=== PATIENT | female | born 1975 | race Hispanic/Latino ===

== ENCOUNTER 2017-01-19 10:26 | Emergency (ER) | payer SELFPAY ==
[~2017-01-19] VITALS: Ht 157.5 cm; Wt 77.0 kg
[~2017-01-19 10:26] MED LIST: BACTRIM DS1 TAB PO; CEPHALEXIN500 MG PO; LORTAB 1010 MG PO; ULTRAM50 M1 PO
[2017-01-19 11:08] LABS: URINE BILIRUBIN - DIPSTICK NEGATIVE (NEGATIVE); URINE BLOOD DIPSTICK TRACE-INTACT (NEGATIVE); URINE CLARITY SLIGHT CLOUDY; URINE COLOR YELLOW; URINE GLUCOSE - DIPSTICK NEGATIVE (NEGATIVE); URINE KETONE TRACE mg/dL (NEGATIVE); URINE LEUK ESTERASE NEGATIVE (NEGATIVE); URINE NITRITE - DIPSTICK NEGATIVE (Negative); URINE PH 5.5 (4.5-8.0); URINE PROTEIN - DIPSTICK NEGATIVE (NEG-TRACE); URINE SPECIFIC GRAVITY 1.025; URINE UROBILINOGEN - DIPSTICK 0.2 E.U./dL (0.2)
[2017-01-19 11:42] LABS: HEMATOCRIT 37.7 % (37.0-47.0); HEMOGLOBIN 13.2 g/dl (12.0-16.0); IMMATURE GRANULOCYTES 0.4 % (0.0-1.0); MEAN CELL VOLUME 87.7 fL CALC (80.0-100.0); MEAN CORPUSCULAR HGB 30.7 pG CALC (26.0-32.0); RED BLOOD COUNT 4.3 mill/uL (4.20-5.60); RED CELL DISTRI WIDTH 12.9 % (11.5-15.5)
[2017-01-19 11:43] LABS: NEUT# 6.44 thou/uL (2.00-7.15)
[2017-01-19 12:15] LABS: ALKALINE PHOSPHATASE 63 u/l (38-126); BETA-HCG, QUANT(RESULT NUMBER) 41 mIU/mL; BILIRUBIN, TOTAL 0.5 mg/dL (0.0-1.4); BUN 11 mg/dL (7-17); CALCIUM 9.3 mg/dL (8.4-10.2); CARBON DIOXIDE 20 mmol/l (22-30); CHLORIDE 107 mmol/l (95-108); CREATININE 0.6 mg/dL (0.5-1.0); GFR > 60 ML/MIN (>=60 (CALC)); GFR FOR AFR.AMER. > 60 ML/MIN (>=60 (CALC)); POTASSIUM 3.6 mmol/l (3.5-5.1); SGOT/AST 19 u/l (14-36); SGPT/ALT 26 u/l (9-52); SODIUM 140 mmol/l (137-146)
[2017-01-19 12:22] LABS: ALBUMIN 4.5 g/dL (3.2-5.0); ANION GAP 17 (6-22 (CALC)); BUN/CREATININE RATIO 19 (12-20 (CALC)); GLUCOSE 107 mg/dL (65-105)
[2017-01-19 12:56] VITALS: BP 107/62
== END 2017-01-19 13:00 | disposition home or self-care (01) | DRG 781 ==
LOC: ED 10:26
PROVIDERS: Emergency Medicine
DX: O26.891 Other specified pregnancy related conditions, first trimester (principal); R10.32 Left lower quadrant pain

== ENCOUNTER 2017-01-26 11:30 | Observation (INO) | payer SELFPAY ==
[~2017-01-26] VITALS: Ht 157.5 cm; Wt 81.2 kg
[2017-01-26 12:15] VITALS: BP 133/89
[2017-01-26 14:26] LABS: HEMOGLOBIN 12.2 g/dl (12.0-16.0); IMMATURE GRANULOCYTES 0.5 % (0.0-1.0); MEAN CELL VOLUME 88.4 fL CALC (80.0-100.0); MEAN CORPUSCULAR HGB 30.8 pG CALC (26.0-32.0); MEAN CORPUSCULAR HGB CONC 34.9 g/L CALC (32.0-36.0); NEUT# 5.8 thou/uL (2.00-7.15); RED BLOOD COUNT 3.96 mill/uL (4.20-5.60); RED CELL DISTRI WIDTH 12.9 % (11.5-15.5)
[2017-01-26 14:46] LABS: ALKALINE PHOSPHATASE 54 u/l (38-126); ANION GAP 13 (6-22 (CALC)); BILIRUBIN, TOTAL 0.4 mg/dL (0.0-1.4); BUN 8 mg/dL (7-17); BUN/CREATININE RATIO 14 (12-20 (CALC)); CALCIUM 9.3 mg/dL (8.4-10.2); CARBON DIOXIDE 22 mmol/l (22-30); CHLORIDE 106 mmol/l (95-108); CREATININE 0.6 mg/dL (0.5-1.0); GFR > 60 ML/MIN (>=60 (CALC)); GFR FOR AFR.AMER. > 60 ML/MIN (>=60 (CALC)); GLUCOSE 77 mg/dL (65-105); POTASSIUM 3.9 mmol/l (3.5-5.1); SGOT/AST 18 u/l (14-36); SGPT/ALT 26 u/l (9-52); SODIUM 137 mmol/l (137-146); TOTAL PROTEIN 7.2 g/dL (6.3-8.2)
[2017-01-26 15:30] LABS: BETA-HCG, QUANT(RESULT NUMBER) 70 mIU/mL
[2017-01-26 16:32] LABS: URINE BILIRUBIN - DIPSTICK NEGATIVE (NEGATIVE); URINE BLOOD DIPSTICK TRACE-LYSED (NEGATIVE); URINE CLARITY CLEAR; URINE COLOR YELLOW; URINE GLUCOSE - DIPSTICK NEGATIVE (NEGATIVE); URINE KETONE 15 mg/dL (NEGATIVE); URINE LEUK ESTERASE NEGATIVE (NEGATIVE); URINE NITRITE - DIPSTICK NEGATIVE (Negative); URINE PROTEIN - DIPSTICK NEGATIVE (NEG-TRACE); URINE UROBILINOGEN - DIPSTICK 0.2 E.U./dL (0.2)
[2017-01-26 16:38] VITALS: BP 100/65
[2017-01-26 20:15] VITALS: BP 101/39
[2017-01-26 20:30] VITALS: BP 108/52
[2017-01-26 20:45] VITALS: BP 106/55
[2017-01-26 21:00] VITALS: BP 112/59
[2017-01-27 00:25] VITALS: BP 94/49
[2017-01-27 04:30] VITALS: BP 98/56
[2017-01-27] MEDS ORDERED: LORTAB 7.5-3251 TAB PO (07:48)
[2017-01-27 08:20] VITALS: BP 106/70
== END 2017-01-27 13:10 | disposition home or self-care (01) | DRG 777 ==
LOC: ENPENDDIS → OBOP 11:30 → ED 11:30 → EDSTATUS 11:59 → MS2 12:02
PROVIDERS: ADMIT Obstetrics & Gynecology; ATTEND Obstetrics & Gynecology
PROC: 10T24ZZ Resection of Products of Conception, Ectopic, Percutaneous Endoscopic Approach (ICD-10-PCS; principal; 2017-01-26)
PROC: 0UT74ZZ Resection of Bilateral Fallopian Tubes, Percutaneous Endoscopic Approach (ICD-10-PCS; 2017-01-26)
DX: O00.10 Tubal pregnancy without intrauterine pregnancy (principal); N73.6 Female pelvic peritoneal adhesions (postinfective); N83.8 Other noninflammatory disorders of ovary, fallopian tube and broad ligament
CPT/HCPCS: G0378; G0379; J2710

== ENCOUNTER 2022-10-18 23:40 | Emergency (ER) | payer SELFPAY ==
[~2022-10-18] VITALS: Ht 157.5 cm; Wt 90.0 kg
[~2022-10-18 23:40] MED LIST changes: +LORTAB 7.5-3251 TAB PO
[2022-10-19 03:20] VITALS: BP 138/46
== END 2022-10-19 03:25 | disposition home or self-care (01) | DRG 153 ==
LOC: ED
DX: J02.8 Acute pharyngitis due to other specified organisms (principal); Z20.822 Contact with and (suspected) exposure to COVID-19

== ENCOUNTER 2023-07-08 21:42 | Emergency (ER) | payer SELFPAY ==
[~2023-07-08] VITALS: Ht 157.5 cm; Wt 86.0 kg
[2023-07-08 22:15] VITALS: BP 145/67
[2023-07-08 22:30] VITALS: BP 133/82
[2023-07-08 22:45] VITALS: BP 147/94
[2023-07-08 23:03] LABS: URINE BILIRUBIN - DIPSTICK Negative (NEGATIVE); URINE BLOOD DIPSTICK Small (NEGATIVE); URINE GLUCOSE - DIPSTICK Negative (NEGATIVE); URINE KETONE Trace mg/dL (NEGATIVE); URINE LEUK ESTERASE Negative (NEGATIVE); URINE NITRITE - DIPSTICK Negative (Negative); URINE PH 5.5 (4.5-8.0); URINE PROTEIN - DIPSTICK Negative (NEG-TRACE); URINE SPECIFIC GRAVITY >=1.030; URINE UROBILINOGEN - DIPSTICK 0.2 E.U./dL (0.2)
[2023-07-08 23:04] LABS: URINE COLOR Yellow; URINE SQUAMOUS EPITHELIAL CELL FEW EPI/hpf (0-FEW); URINE WBC 0-2 WBC/hpf (0-5)
[2023-07-08 23:09] LABS: BASO% 0.3 % (0-3); EOS% 0.9 % (0-8); HEMATOCRIT 36.9 % (37.0-47.0); IMMATURE GRANULOCYTES 0.3 % (0.0-5.0); MEAN CELL VOLUME 87.9 fL CALC (80.0-100.0); MEAN CORPUSCULAR HGB 28.6 pG CALC (26.0-32.0); MEAN CORPUSCULAR HGB CONC 32.5 g/dL CAL (32.0-36.0); MONO% 9.2 % (2-13); NEUT# 4.55 thou/uL (2.00-7.15); NEUT% 60.3 % (42-76); RED BLOOD COUNT 4.2 mill/uL (4.20-5.60); RED CELL DISTRI WIDTH 13.7 % (11.5-15.5)
[2023-07-08 23:20] LABS: ALBUMIN 4.3 g/dL (3.2-5.0); ALKALINE PHOSPHATASE 83 u/l (38-126); ANION GAP 14 (6-22 (CALC)); BILIRUBIN, TOTAL 0.3 mg/dL (0.02-1.3); BUN 15 mg/dL (7-17); BUN/CREATININE RATIO 23 (12-20 (CALC)); CARBON DIOXIDE 21 mmol/l (22-30); CHLORIDE 105 mmol/l (95-108); CREATININE 0.7 mg/dL (0.5-1.0); GFR FOR AFR.AMER. > 60 ML/MIN (>=60 (CALC)); GFR OTHER RACES > 60 ML/MIN (>=60 (CALC)); LIPASE 64 u/l (23-300); POTASSIUM 3.8 mmol/l (3.5-5.1); SGOT/AST 29 u/l (14-36); SODIUM 136 mmol/l (137-146); TOTAL PROTEIN 7.4 g/dL (6.3-8.2)
[2023-07-09 01:08] VITALS: BP 124/73
[2023-07-09 01:16] VITALS: BP 109/54
[2023-07-09 01:30] VITALS: BP 105/54
[2023-07-09 01:45] VITALS: BP 98/60
[2023-07-09 02:00] VITALS: BP 106/57
== END 2023-07-09 02:14 | disposition home or self-care (01) | DRG 392 ==
LOC: ED 21:42
PROVIDERS: Internal Medicine
DX: R10.32 Left lower quadrant pain (principal)
CPT/HCPCS: Q9967